=== PATIENT | female | born 1945 | race Hispanic/Latino ===

== ENCOUNTER 2019-01-24 20:59 | Emergency (ER) | payer BC, MEDICARE ==
[~2019-01-24 20:59] MED LIST: ASPI-1012 PO; METO50TA18 PO; OMEP10CA41 PO; RAMI2.5C16 PO
[2019-01-24] MEDS ORDERED: ONDANSETRON HCL 4 MG/2 ML VIAL ONE (21:17)
[2019-01-24] MEDS ORDERED: KETOROLAC TROMETHAMINE 15MG/ML ONE (21:18)
[2019-01-24] MEDS ORDERED: SODIUM CHLORIDE 0.9% 1000ML 1,000 ML IV ONE (21:27)
[2019-01-24 22:04] LABS: BASOPHILS % (AUTO) 0.9 % (0.0-5.0); EOSINOPHILS % (AUTO) 0.2 % (0.0-8.0); HEMATOCRIT 43.2 % (36-48); LYMPHOCYTES % (AUTO) 8.6 % (21.0-51.0); MEAN CORPUSCULAR HEMOGLOBIN 28.8 pg (27.0-33.0); MEAN CORPUSCULAR HGB CONC 32.3 g/dL (32.0-36.0); MEAN CORPUSCULAR VOLUME 89.4 fL (79-99); MONOCYTES % (AUTO) 9.1 % (3.0-13.0); NEUTROPHILS % (AUTO) 81.2 % (40.0-77.0); PLATELET COUNT (AUTO) 260 K/uL (130-400); RED BLOOD CELL COUNT(AUTO) 4.84 MIL/uL (4.00-5.50); RED CELL DISTRIBUTION WIDTH 13.6 % (11.0-15.5); WHITE BLOOD COUNT (AUTO) 7.6 K/uL (4.8-10.8)
[2019-01-24 22:09] LABS: APPEARANCE,URINE Clear (CLEAR); BILIRUBIN,URINE Negative (NEGATIVE); COLOR,URINE Yellow (YELLOW); GLUCOSE, URINE (UA) Negative (NEGATIVE); KETONES,URINE Trace mg/dL (NEGATIVE); LEUKOCYTE ESTERASE ,URINE Large (NEGATIVE); NITRATE,URINE Negative (NEGATIVE); OCCULT BLOOD,URINE Small (NEGATIVE); PROTEIN,URINE Negative (NEGATIVE); UROBILINOGEN,URINE 0.2 mg/dL (0.2-1.0)
[2019-01-24 22:16] LABS: INR 1.03 (0.85-1.15); PROTHROMBIN TIME 10.8 SEC (9.6-11.6)
[2019-01-24 22:19] LABS: BACTERIA,URINE Few /HPF (None Seen); WBC,URINE 26-50 /HPF (0-1)
[2019-01-24 22:20] LABS: SQUAMOUS EPITHELIAL CELL,UR Rare /HPF (0-2)
[2019-01-24 22:29] LABS: CREATININE 0.9 mg/dL (0.5-1.5)
[2019-01-24 22:37] LABS: ALBUMIN 2.9 g/dL (3.5-5.0); BILIRUBIN,TOTAL 0.4 mg/dL (0.2-1.0); TOTAL PROTEIN, SERUM 6.8 g/dL (6.0-8.3)
[2019-01-24] MEDS ORDERED: CEFTRIAXONE SODIUM 1 GM ONE (23:29)
== END 2019-01-25 00:30 | disposition home or self-care (01) ==
LOC: EDH 20:59
DX: N39.0 Urinary tract infection, site not specified (principal); R91.8 Other nonspecific abnormal finding of lung field; I10 Essential (primary) hypertension; Z90.710 Acquired absence of both cervix and uterus; Z98.890 Other specified postprocedural states; Z95.1 Presence of aortocoronary bypass graft; Z88.8 Allergy status to other drugs, medicaments and biological substances
CPT/HCPCS: 36415; 71045; 80053; 81001; 82550; 83605; 83690; 84484; 85025; 85610; 85730; 87804 ×2; 93005; 96361; 96374; 96375; 99285; J0696; J1885; J2405; J7030

== ENCOUNTER 2019-03-24 07:28 | Emergency (ER) | payer BC, MEDICARE ==
[2019-03-24] MEDS ORDERED: ONDANSETRON HCL 4 MG/2 ML VIAL ONE (08:04)
[2019-03-24 08:17] LABS: BASOPHILS % (AUTO) 0.7 % (0.0-5.0); EOSINOPHILS % (AUTO) 0.8 % (0.0-8.0); HEMATOCRIT 43.7 % (36-48); LYMPHOCYTES % (AUTO) 8.9 % (21.0-51.0); MEAN CORPUSCULAR HEMOGLOBIN 28.9 pg (27.0-33.0); MEAN CORPUSCULAR HGB CONC 32.5 g/dL (32.0-36.0); MONOCYTES % (AUTO) 4.3 % (3.0-13.0); NEUTROPHILS % (AUTO) 85.3 % (40.0-77.0); PLATELET COUNT (AUTO) 245 K/uL (130-400); RED BLOOD CELL COUNT(AUTO) 4.91 MIL/uL (4.00-5.50); RED CELL DISTRIBUTION WIDTH 14.6 % (11.0-15.5); WHITE BLOOD COUNT (AUTO) 11.4 K/uL (4.8-10.8)
[2019-03-24 08:27] LABS: POTASSIUM 3.7 mmol/L (3.5-5.1)
[2019-03-24 08:32] LABS: ALBUMIN 3.9 g/dL (3.5-5.0); BILIRUBIN,TOTAL 0.4 mg/dL (0.2-1.0); TOTAL PROTEIN, SERUM 7.4 g/dL (6.0-8.3)
[2019-03-24 08:34] LABS: INR 0.97 (0.85-1.15); PARTIAL THROMBOPLASTIN TIME 27.1 SEC (26.3-35.5); PROTHROMBIN TIME 10.2 SEC (9.6-11.6)
[2019-03-24] MEDS ORDERED: KETOROLAC TROMETHAMINE 15MG/ML ONE (08:48)
[2019-03-24] MEDS ORDERED: HYDROCODONE/ACETAMINOPHEN 10/325 MG TAB ONE (08:48)
[2019-03-24 09:49] LABS: APPEARANCE,URINE Clear (CLEAR); BILIRUBIN,URINE Negative (NEGATIVE); COLOR,URINE Yellow (YELLOW); GLUCOSE, URINE (UA) Negative (NEGATIVE); KETONES,URINE 15 mg/dL (NEGATIVE); LEUKOCYTE ESTERASE ,URINE Negative (NEGATIVE); NITRATE,URINE Negative (NEGATIVE); OCCULT BLOOD,URINE Small (NEGATIVE); PH,URINE 6.5 (5.0-8.0); PROTEIN,URINE Negative (NEGATIVE)
[2019-03-24 09:52] LABS: BACTERIA,URINE Rare /HPF (None Seen); RBC,URINE 0-1 /HPF (0-1); SQUAMOUS EPITHELIAL CELL,UR Rare /HPF (0-2); WBC,URINE 0-1 /HPF (0-1)
== END 2019-03-24 10:32 | disposition home or self-care (01) ==
LOC: EDH 07:28
DX: K80.20 Calculus of gallbladder without cholecystitis without obstruction (principal); I10 Essential (primary) hypertension; Z90.710 Acquired absence of both cervix and uterus
CPT/HCPCS: 36415; 76705; 80053; 81001; 82550; 84484; 85025; 85610; 85730; 93005; 96374; 99285; J1885; J2405

== ENCOUNTER 2019-03-31 06:57 | Day surgery (SDC) | payer BC, MEDICARE ==
[2019-03-28 16:50] VITALS: BP 153/68
[2019-03-28 17:06] LABS: BASOPHILS % (AUTO) 0.7 % (0.0-5.0); EOSINOPHILS % (AUTO) 1.5 % (0.0-8.0); HEMATOCRIT 43.3 % (36-48); LYMPHOCYTES % (AUTO) 13.6 % (21.0-51.0); MEAN CORPUSCULAR HEMOGLOBIN 29.9 pg (27.0-33.0); MEAN CORPUSCULAR HGB CONC 33.6 g/dL (32.0-36.0); MEAN CORPUSCULAR VOLUME 89.2 fL (79-99); MONOCYTES % (AUTO) 7.1 % (3.0-13.0); NEUTROPHILS % (AUTO) 77.1 % (40.0-77.0); NUCLEATED RED BLOOD CELLS 0.1 % (0.0-0.19); PLATELET COUNT (AUTO) 303 K/uL (130-400); RED BLOOD CELL COUNT(AUTO) 4.86 MIL/uL (4.00-5.50); RED CELL DISTRIBUTION WIDTH 14.6 % (11.0-15.5); WHITE BLOOD COUNT (AUTO) 5.8 K/uL (4.8-10.8)
[2019-03-28 17:15] LABS: POTASSIUM 3.9 mmol/L (3.5-5.1)
--- NOTE | 2019-03-28 19:40 | NUR ---
HOLDING: SENT EKG TO DR. OSORIO, STATES EKG DOES NOT PASS, WE CANNOT OBTAIN PREVIOUS EKG. DR. OSORIO STATES HE WILL CLEAR PT ON SUNDAY MORNING IN HOLDING.
[~2019-03-31] VITALS: Ht 160 cm; Wt 76.1 kg
[2019-03-31] VITALS (16 sets, daily range): BP systolic 104–160; BP diastolic 60–88
[~2019-03-31 06:57] MED LIST changes: -ASPI-1012 PO
--- NOTE | 2019-03-31 07:42 | NUR ---
CARDIOVASCULAR: DR. OSORIO VIEWED EKG FROM 2016 WITH RECENT ONE, OK TO PROCEED WITH SURGERY.
[2019-03-31] MEDS ORDERED: LACTATED RINGERS 1000ML 1,000 ML IV ONE (08:05)
[2019-03-31] MEDS: CEFAZOLIN SODIUM 1 GM VIAL IVP ONE ×2 (08:23→08:44)
[2019-03-31] MEDS ORDERED: LIDOCAINE PF 2% 5ML ABBOJECT ONE (08:30)
[2019-03-31] MEDS ORDERED: ONDANSETRON HCL 4 MG/2 ML VIAL ONE ×2 (08:30→10:22)
[2019-03-31] MEDS ORDERED: PROPOFOL 10 MG/ML 20ML VIAL IV ONE (08:31)
[2019-03-31] MEDS ORDERED: ROCURONIUM 10MG/1ML SYR 10 MG/ML ML ONE (08:31)
[2019-03-31] MEDS ORDERED: FENTANYL CITRATE PF 50 MCG/1 ML 2ML VIAL ONE (08:34)
[2019-03-31] MEDS ORDERED: MIDAZOLAM HCL 1 MG/ML 2ML VIAL ONE ×2 (08:34→09:47)
[2019-03-31] MEDS ORDERED: BUPIVACAINE/PF 0.5% 30ML VIAL ONE (08:42)
[2019-03-31] MEDS ORDERED: EPHEDRINE SULFATE 50 MG/ML AMPULE ONE (08:51)
[2019-03-31] MEDS ORDERED: GLYCOPYRROLATE 1 MG/5 ML SYRINGE ONE (09:26)
[2019-03-31] MEDS ORDERED: NEOSTIGMINE 5MG/5ML SYR IV ONE (09:26)
[2019-03-31] MEDS ORDERED: MEPERIDINE-PF 25 MG/ML SYG ONE ×2 (09:45→10:00)
[2019-03-31] MEDS ORDERED: MORPHINE SULFATE 4 MG/1ML SYG ONE (10:21)
[2019-03-31] MEDS ORDERED: METOCLOPRAMIDE 10 MG/2 ML VIAL ONE (10:22)
--- NOTE | 2019-03-31 10:50 | NUR ---
DIRECTOR STARS JUNE TO ASSESS PT, MEDICATIONS GIVEN REVIEWED BY DIRECTOR STARS. NO NEW ORDERS GIVEN, SEND PT TO DAY PT FOR FURTHER ASSESSMENT. PT'S REPORTS PAIN LEVEL 4/10. REPORT CALLED TO DAY PT.
== END 2019-03-31 12:10 | disposition home or self-care (01) ==
LOC: DAH 06:57
PROVIDERS: ATTEND Surgery
DX: K80.10 Calculus of gallbladder with chronic cholecystitis without obstruction (principal); Z79.899 Other long term (current) drug therapy; I10 Essential (primary) hypertension; Z98.890 Other specified postprocedural states; Z90.710 Acquired absence of both cervix and uterus; Z80.9 Family history of malignant neoplasm, unspecified; K29.70 Gastritis, unspecified, without bleeding
CPT/HCPCS: 36415; 80048; 85025; 88304; 93005; J0690; J2001; J2175; J2250; J2270; J2405; J2704; J2710; J2765; J3010; J3490; J7030; J7120

== ENCOUNTER → 2022-04-25 | Outpatient (CLI) | payer OTHER ==
[~2022-04-25] MED LIST changes: -OMEP10CA41 PO; +OMEP10CA5 PO; -RAMI2.5C16 PO; +RAMI2.5C55 PO; +REGADENOSON 0.4 MG/5 ML PF SYG IVP SCH
== END | disposition home or self-care (01) ==
LOC: SHCH 08:37
PROVIDERS: ATTEND Internal Medicine Cardiovascular Disease
DX: I10 Essential (primary) hypertension (principal); Z79.899 Other long term (current) drug therapy
CPT/HCPCS: 78452; 93017; 96374; A9500 ×2; J2785

== ENCOUNTER → 2023-01-24 | Outpatient (CLI) | payer OTHER ==
[~2023-01-24] MED LIST changes: +ALBUTEROL 0.083% 2.5 MG/3 ML INH IH ONE; -REGADENOSON 0.4 MG/5 ML PF SYG IVP SCH
== END | disposition home or self-care (01) ==
LOC: RESP 09:55
PROVIDERS: ATTEND Internal Medicine Cardiovascular Disease
DX: R06.02 Shortness of breath (principal); Z86.16 Personal history of COVID-19
CPT/HCPCS: 94060; 94727; 94729

== ENCOUNTER → 2023-04-20 | Outpatient (CLI) | payer OTHER ==
[~2023-04-20] MED LIST changes: -ALBUTEROL 0.083% 2.5 MG/3 ML INH IH ONE
[2023-04-20 12:00] LABS: BASOPHILS % (AUTO) 1.9 % (0.0-5.0); EOSINOPHILS % (AUTO) 2.1 % (0.0-8.0); HEMATOCRIT 43.6 % (36-48); LYMPHOCYTES % (AUTO) 23.2 % (21.0-51.0); MEAN CORPUSCULAR HEMOGLOBIN 28.9 pg (27.0-33.0); MEAN CORPUSCULAR HGB CONC 31.9 g/dL (32.0-36.0); MEAN CORPUSCULAR VOLUME 90.6 fL (79-99); MONOCYTES % (AUTO) 7.1 % (3.0-13.0); NEUTROPHILS % (AUTO) 65.2 % (40.0-77.0); PLATELET COUNT (AUTO) 268 K/uL (130-400); RED BLOOD CELL COUNT(AUTO) 4.81 MIL/uL (4.00-5.50); WHITE BLOOD COUNT (AUTO) 5.8 K/uL (4.8-10.8)
[2023-04-20 12:15] LABS: HEMOGLOBIN A1C 5.9 % (4.0-6.0)
[2023-04-20 13:11] LABS: ALBUMIN 3.7 g/dL (3.5-5.0); CREATININE 1.2 mg/dL (0.5-1.5); T4 (THYROXINE) 8.1 ug/dL (4.7-13.3); THYROID STIMULATING HORMONE 2.79 uIU/mL (0.36-3.74); TOTAL PROTEIN, SERUM 7.1 g/dL (6.0-8.3)
== END | disposition home or self-care (01) ==
LOC: LAB 09:16
PROVIDERS: ATTEND Physician Assistant
DX: I10 Essential (primary) hypertension (principal); E78.5 Hyperlipidemia, unspecified; Z79.899 Other long term (current) drug therapy
CPT/HCPCS: 36415; 80053; 80061; 82607; 82652; 83036; 83880; 84436; 84443; 84479; 85025

== ENCOUNTER → 2023-10-12 | Outpatient (CLI) | payer OTHER ==
[2023-10-12 12:31] LABS: ALBUMIN 3.9 g/dL (3.5-5.0); BILIRUBIN,TOTAL 0.4 mg/dL (0.2-1.0); CREATININE 1.2 mg/dL (0.5-1.5); POTASSIUM 4.3 mmol/L (3.5-5.1); TOTAL PROTEIN, SERUM 7.4 g/dL (6.0-8.3)
== END | disposition home or self-care (01) ==
LOC: LAB 09:54
PROVIDERS: ATTEND Internal Medicine Cardiovascular Disease
DX: I10 Essential (primary) hypertension (principal); E78.5 Hyperlipidemia, unspecified
CPT/HCPCS: 36415; 80053; 80061

== ENCOUNTER → 2024-05-16 | Outpatient (CLI) | payer OTHER, MEDICARE ==
[~2024-05-16] MED LIST changes: -RAMI2.5C55 PO; +RAMI2.5C57 PO
[2024-05-16 12:51] LABS: CHOLESTEROL 247 mg/dL (<200); HDL CHOLESTEROL 45 mg/dL (35-85); LDL DIRECT 168 mg/dL (0-99); TRIGLYCERIDES 176 mg/dL (30-200)
== END | disposition home or self-care (01) ==
LOC: LAB 09:28
PROVIDERS: ATTEND Internal Medicine Cardiovascular Disease
DX: E78.5 Hyperlipidemia, unspecified (principal)
CPT/HCPCS: 36415; 80061